=== PATIENT | male | born 1990 | race Caucasian/White ===

== ENCOUNTER 2021-10-17 22:25 | Emergency (ER) | payer OTHER ==
[2021-10-18] MEDS ORDERED: BACTROBAN OINT22 GM EXT (03:43)
[2021-10-18] MEDS ORDERED: DOXYCYCLINE HY100 M2 PO (03:43)
== END 2021-10-18 03:55 | disposition home or self-care (01) ==
LOC: ER1 22:25
DX: R21 Rash and other nonspecific skin eruption (principal); F17.210 Nicotine dependence, cigarettes, uncomplicated; W57.XXXA Bitten or stung by nonvenomous insect and other nonvenomous arthropods, initial encounter
CPT/HCPCS: 99282